=== PATIENT | male | born 1965 | race Caucasian/White ===

== ENCOUNTER 2017-05-24 09:32 | Emergency (ER) | payer SELFPAY ==
[2017-05-24 11:54] LABS: HEMATOCRIT 43.8 % (42.0-54.0); HEMOGLOBIN 15.6 g/dL (13.5-17.5); MCH 34.4 pg (26.0-34.0); MCHC 35.6 g/dL (31.0-37.0); MCV 96.5 fL (80.0-100.0); MEAN PLATELET VOLUME 10.8 fL (7.4-10.4); PLATELET COUNT 112 10x3/uL (130-400); RBC 4.54 10x6/uL (4.20-6.10); RDW 13.1 % (11.5-14.5); WBC 2.8 10x3/uL (4.8-10.8)
[2017-05-24 12:14] LABS: ALBUMIN 4.5 g/dL (3.4-5.0); ALKALINE PHOSPHATASE 66 U/L (46-116); ALT (SGPT) 96 U/L (10-68); AMYLASE - SERUM 38 U/L (25-115); BILIRUBIN - TOTAL 0.48 mg/dL (0.2-1.3); CALC OSMOLALITY 272 mosm/kg (275-300); CALCIUM 8.6 mg/dL (8.5-10.1); CARBON DIOXIDE 29.4 mmol/L (21.0-32.0); CHLORIDE - SERUM 99 mmol/L (98-107); CREATININE - SERUM 0.7 mg/dL (0.6-1.3); GLUCOSE 93 mg/dL (74-106); LIPASE 144 U/L (73-393); POTASSIUM - SERUM 3.9 mmol/L (3.5-5.1); PROTEIN - SERUM 8.6 g/dL (6.4-8.2); SODIUM 138 mmol/L (136-145); UREA NITROGEN 4 mg/dL (7-18); eGFR NON AFRICAN AMERICAN > 90 mL/min (90-120)
[2017-05-24 13:03] LABS: BASOPHILS 1 % (0-2); LYMPHOCYTES 34 % (15-50); MONOCYTES 8 % (2-11); NEUTROPHILS 55 % (40-80); PLATELET ESTIMATE DECREASED
== END 2017-05-24 16:11 | disposition home or self-care (01) ==
LOC: D.ER 09:32
PROVIDERS: Nurse Practitioner Family
DX: E86.0 Dehydration (principal); F10.10 Alcohol abuse, uncomplicated; F10.239 Alcohol dependence with withdrawal, unspecified; F17.200 Nicotine dependence, unspecified, uncomplicated

== ENCOUNTER 2018-10-12 07:44 | Emergency (ER) | payer SELFPAY ==
[~2018-10-12] VITALS: Ht 190.5 cm; Wt 65.9 kg
[2018-10-12 07:46] VITALS: Ht 190.5 cm; Wt 65.9 kg
[2018-10-12 08:05] LABS: BASOPHILS 0.1 % (0-2); EOSINOPHILS 0.1 % (0-7); HEMATOCRIT 41.4 % (42.0-54.0); HEMOGLOBIN 15.5 g/dL (13.5-17.5); IMMATURE GRANULOCYTES 0.4 % (0-5); LYMPHOCYTES 9.1 % (15-50); MCH 33.2 pg (26.0-34.0); MCHC 37.4 g/dL (31.0-37.0); MCV 88.7 fL (80.0-100.0); MEAN PLATELET VOLUME 10.8 fL (7.4-10.4); MONOCYTES 9.5 % (2-11); NEUTROPHILS 80.8 % (40-80); PLATELET COUNT 129 10x3/uL (130-400); RBC 4.67 10x6/uL (4.20-6.10); RDW 12.9 % (11.5-14.5); WBC 10.1 10x3/uL (4.8-10.8)
[2018-10-12 08:17] LABS: ALBUMIN 4.5 g/dL (3.4-5.0); ALKALINE PHOSPHATASE 71 U/L (46-116); ALT (SGPT) 41 U/L (10-68); BILIRUBIN - TOTAL 0.67 mg/dL (0.2-1.3); CALC OSMOLALITY 264 mosm/kg (275-300); CALCIUM 9.6 mg/dL (8.5-10.1); CARBON DIOXIDE 29.7 mmol/L (21.0-32.0); CHLORIDE - SERUM 90 mmol/L (98-107); CREATININE - SERUM 0.9 mg/dL (0.6-1.3); POTASSIUM - SERUM 3.8 mmol/L (3.5-5.1); PROTEIN - SERUM 8.7 g/dL (6.4-8.2); SODIUM 131 mmol/L (136-145); UREA NITROGEN 9 mg/dL (7-18); eGFR NON AFRICAN AMERICAN > 90 mL/min (90-120)
[2018-10-12 08:19] LABS: GLUCOSE 161 mg/dL (74-106)
[2018-10-12 08:20] LABS: AMYLASE - SERUM 29 U/L (25-115); LIPASE 166 U/L (73-393)
[2018-10-12 08:23] LABS: TROPONIN-I < 0.017 ng/mL (0.000-0.060)
[2018-10-12 09:32] LABS: APPEARANCE CLEAR (CLEAR); BILIRUBIN NEGATIVE (NEGATIVE); COLOR STRAW (YELLOW); GLUCOSE 100 mg/dL (NEGATIVE); KETONE NEGATIVE (NEGATIVE); NITRITE NEGATIVE (NEGATIVE); PROTEIN NEGATIVE (NEGATIVE); SPECIFIC GRAVITY 1.005 (1.005-1.020); UROBILINOGEN NORMAL (NORMAL)
[2018-10-12 09:33] LABS: BACTERIA NONE SEEN /hpf (NONE SEEN); EPITHELIAL CELLS NSEEN /hpf (0-5); RED CELLS - URINE 0-5 /hpf (0-5); WHITE CELLS - URINE NSEEN /hpf (0-5)
[2018-10-12] MEDS ORDERED: ZOFRAN ODT4 MG/UDTAB PO (10:30)
[2018-10-12 10:34] VITALS: BP 163/81
== END 2018-10-12 10:38 | disposition home or self-care (01) ==
LOC: D.ER 07:44
PROVIDERS: Family Medicine
DX: R11.2 Nausea with vomiting, unspecified (principal); R19.7 Diarrhea, unspecified; B34.9 Viral infection, unspecified